=== PATIENT | male | born 1945 | race Hispanic/Latino ===

== ENCOUNTER 2019-02-20 12:05 | Observation (INO) | payer OTHER ==
[~2019-02-20] VITALS: Ht 165.1 cm; Wt 81.8 kg
[~2019-02-20 12:05] MED LIST: ASPIRIN 81 LOW81 MG PO; CLONIDINE0.1 MG PO; COZAAR50 MG PO; ISOSORB MONO30 MG PO; LOPRESSOR25 M1 PO; METAMUCIL28 % PO; NITROSTAT0.4 MG SL; PHENYTOIN EX100 M1 PO; PRILOSEC20 MG PO
[2019-02-20] MEDS ORDERED: LABETALOL200 MG PO (12:21)
[2019-02-20] MEDS ORDERED: CLOPIDOGREL75 MG PO (12:21)
[2019-02-20] MEDS ORDERED: TAB-A-VIT1 PO (12:22)
[2019-02-20] MEDS ORDERED: TRAZODONE HYDR150 MG PO (12:22)
[2019-02-20] MEDS ORDERED: KRISTALOSE10 GM PO (12:23)
[2019-02-20 12:54] LABS: HEMATOCRIT 39.1 % (39.0-50.0); HEMOGLOBIN 12.5 g/dl (14.0-18.0); IMMATURE GRANULOCYTES 0.2 % (0.0-5.0); MEAN CELL VOLUME 95.6 fL CALC (80.0-100.0); MEAN CORPUSCULAR HGB 30.6 pG CALC (26.0-32.0); NEUT# 2.69 thou/uL (1.82-7.42); RED BLOOD COUNT 4.09 mill/uL (4.70-6.10); RED CELL DISTRI WIDTH 13.5 % (11.5-15.5)
[2019-02-20 13:31] LABS: ANION GAP 13 (6-22 (CALC)); BUN 29 mg/dL (8-23); BUN/CREATININE RATIO 21 (12-20 (CALC)); CARBON DIOXIDE 29 mmol/l (22-30); CHLORIDE 102 mmol/l (95-108); CREATININE 1.4 mg/dL (0.7-1.3); GFR 49 ML/MIN (>=60 (CALC)); GFR FOR AFR.AMER. 60 ML/MIN (>=60 (CALC)); POTASSIUM 4.8 mmol/l (3.5-5.1); SODIUM 139 mmol/l (137-146)
[2019-02-20 15:50] VITALS: BP 161/77
[2019-02-20 17:11] VITALS: BP 146/74
[2019-02-20 19:15] VITALS: BP 117/55
[2019-02-20 22:01] VITALS: BP 138/72
[2019-02-21 00:06] VITALS: BP 113/65
[2019-02-21 04:45] VITALS: BP 118/61
[2019-02-21 06:14] LABS: CHOLESTEROL HDL RATIO 4.3 (<4.4 (CALC))
[2019-02-21 07:42] VITALS: BP 118/60
[2019-02-21 09:30] LABS: CREATININE 1.5 mg/dL (0.7-1.3); MAGNESIUM 2.3 mg/dL (1.6-2.3); POTASSIUM 4.9 mmol/l (3.5-5.1)
[2019-02-21 10:49] VITALS: BP 97/52
[2019-02-21] MEDS ORDERED: NORMODYNE/100 MG/TA1 PO (11:15)
[2019-02-21] MEDS ORDERED: AMLODIPINE BESYL5 MG PO (11:16)
[2019-02-21 11:57] VITALS: BP 104/48
== END 2019-02-21 12:04 | disposition designated cancer center or children's hospital (05) | DRG 313 ==
LOC: ED 12:05 → ED-I 14:23 → ED 14:29 → MS2 14:30
PROVIDERS: Family Medicine; Nurse Practitioner Family; ADMIT Internal Medicine; ATTEND Internal Medicine
PROC: 3E0234Z Introduction of Serum, Toxoid and Vaccine into Muscle, Percutaneous Approach (ICD-10-PCS; principal; 2019-02-21)
DX: R07.9 Chest pain, unspecified (principal); I16.0 Hypertensive urgency; I12.9 Hypertensive chronic kidney disease with stage 1 through stage 4 chronic kidney disease, or unspecified chronic kidney disease; N18.3 Chronic kidney disease, stage 3 (moderate); I25.10 Atherosclerotic heart disease of native coronary artery without angina pectoris; K21.9 Gastro-esophageal reflux disease without esophagitis; G40.909 Epilepsy, unspecified, not intractable, without status epilepticus; T46.5X6A Underdosing of other antihypertensive drugs, initial encounter; T44.8X6A Underdosing of centrally-acting and adrenergic-neuron-blocking agents, initial encounter; T39.016A Underdosing of aspirin, initial encounter; T45.526A Underdosing of antithrombotic drugs, initial encounter; I25.2 Old myocardial infarction; Z91.128 Patient's intentional underdosing of medication regimen for other reason; Z95.5 Presence of coronary angioplasty implant and graft; Z87.891 Personal history of nicotine dependence; Z23 Encounter for immunization
CPT/HCPCS: G0378

== ENCOUNTER 2024-01-24 16:27 | Emergency (ER) | payer OTHER ==
[2024-01-24] VITALS (9 sets, daily range): BP systolic 148–164; BP diastolic 68–82
[~2024-01-24] VITALS: Ht 165.1 cm; Wt 100.0 kg
[~2024-01-24 16:27] MED LIST changes: +AMLODIPINE BESYL5 MG PO; +CLOPIDOGREL75 MG PO; +KRISTALOSE10 GM PO; +LABETALOL200 MG PO; +NORMODYNE/100 MG/TA1 PO; +TAB-A-VIT1 PO; +TRAZODONE HYDR150 MG PO
[2024-01-24] MEDS ORDERED: LORATADINE10 M1 PO (16:44)
[2024-01-24] MEDS ORDERED: AMLODIPINE BESY10 MG PO (16:45)
[2024-01-24] MEDS ORDERED: LOSARTAN POTASS50 MG PO (16:45)
[2024-01-24] MEDS ORDERED: ATENOLOL50 MG PO (16:46)
[2024-01-24] MEDS ORDERED: SERTRALINE50 MG PO (16:47)
[2024-01-24] MEDS ORDERED: TRAZODONE50 MG PO (16:48)
[2024-01-24 17:39] LABS: BASO% 0.4 % (0-3); EOS% 10.2 % (0-8); HEMATOCRIT 38.6 % (39.0-50.0); HEMOGLOBIN 12.4 g/dl (14.0-18.0); IMMATURE GRANULOCYTES 0.1 % (0.0-5.0); LYMPH% 26.6 % (15-41); MEAN CELL VOLUME 98.2 fL CALC (80.0-100.0); MEAN CORPUSCULAR HGB 31.6 pG CALC (26.0-32.0); MEAN CORPUSCULAR HGB CONC 32.1 g/dL CAL (32.0-36.0); NEUT# 4.27 thou/uL (1.82-7.42); NEUT% 52.7 % (42-76); RED BLOOD COUNT 3.93 mill/uL (4.70-6.10); RED CELL DISTRI WIDTH 13.1 % (11.5-15.5)
[2024-01-24 17:51] LABS: ALBUMIN 4.6 g/dL (3.2-5.0); BILIRUBIN, TOTAL 0.4 mg/dL (0.2-1.3); CREATININE 1.7 mg/dL (0.7-1.3); TOTAL PROTEIN 7.4 g/dL (6.3-8.2)
[2024-01-24 17:52] LABS: POTASSIUM 5.4 mmol/l (3.5-5.1)
[2024-01-24 19:57] LABS: TSH, 3RD GENERATION 2.44 uIU/mL (0.47 - 4.68)
== END 2024-01-24 21:15 | disposition designated cancer center or children's hospital (05) | DRG 948 ==
LOC: ED 16:27
PROVIDERS: Family Medicine
DX: R60.0 Localized edema (principal); I12.9 Hypertensive chronic kidney disease with stage 1 through stage 4 chronic kidney disease, or unspecified chronic kidney disease; N18.30 Chronic kidney disease, stage 3 unspecified; I25.10 Atherosclerotic heart disease of native coronary artery without angina pectoris; G40.909 Epilepsy, unspecified, not intractable, without status epilepticus; J45.909 Unspecified asthma, uncomplicated; I25.2 Old myocardial infarction; Z95.5 Presence of coronary angioplasty implant and graft
CPT/HCPCS: Q9967